=== PATIENT | male | born 1940 | race Asian ===

== ENCOUNTER 2020-05-07 03:50 | Inpatient (IN) | payer MEDICARE, OTHER ==
[2020-05-07] VITALS (13 sets, daily range): BP systolic 113–166; BP diastolic 61–91
[~2020-05-07] VITALS: Ht 167.6 cm; Wt 60.8 kg
[2020-05-07 05:55] LABS: Basophils # (auto) 0 10 ^3/uL (0-0.2); Basophils % (auto) 0.5 % (0.0-2.0); Eosinophils # (auto) 0 10 ^3/uL (0-0.8); Lymphocytes # (auto) 0.8 10 ^3/uL (0.4-5.4); Monocytes # (auto) 0.4 10 ^3/uL (0-1.3); Nucleated Red Blood Cells % 0.1 %
[2020-05-07 05:59] LABS: Eosinophils % (auto) 0.5 % (0.0-7.0); Hematocrit 20.2 % (41.0-53.0); Lymphocytes % (auto) 12.8 % (10.0-50.0); Mean Corpuscular Hemoglobin 35.7 pg (28.0-32.0); Mean Corpuscular Hgb Conc. 33.1 g/dL (32.0-36.0); Mean Corpuscular Volume 107.8 fL (80.0-100.0); Monocytes % (auto) 7.1 % (0.0-12.0); Neutrophils # (auto) 4.7 10 ^3/uL (1.6-8.6); Neutrophils % (auto) 79.1 % (37.0-80.0); Platelet Count (auto) 154 10^3/uL (140-450); Red Blood Cells 1.87 10^6/uL (4.5-5.90); Red Cell Distribution Width 17.4 % (11.8-14.3); White Blood Cell 5.9 10^3/uL (4.4-10.8)
[2020-05-07 06:16] LABS: Chloride 113 mmol/L (98-107); Hemoglobin 6.7 g/dL (13.5-17.5); Potassium 4.6 mmol/L (3.5-5.1); Sodium 140 mmol/L (136-145)
[2020-05-07 06:26] LABS: Alanine Aminotransferase 21 U/L (16-61); Albumin 3.1 g/dL (3.4-5.0); Alkaline Phosphatase 44 U/L (45-117); Anion Gap 5 (5-15); Aspartate Aminotransferase 23 U/L (15-37); Bilirubin, Total 0.5 mg/dL (0.2-1.0); Calcium 8.3 mg/dL (8.5-10.1); Carbon Dioxide 22 mmol/L (21-32); GFR African American 26 mL/min; GFR Non-African American 22 mL/min; Glucose 112 mg/dL (74-106); Total Protein 6.2 g/dL (6.4-8.2)
[2020-05-07 06:30] LABS: Blood Urea Nitrogen 80 mg/dL (7-18)
[2020-05-07 10:13] LABS: Partial Thromboplastin Time 48.5 sec (23.0-31.2)
[2020-05-07] MEDS: SODIUM CHLORIDE 0.9% 1,000 ML IV SCH ×3 (10:15→23:23)
[2020-05-07] MEDS ORDERED: NITROGLYCERIN 0.4 MG SL TAB SL PRN (10:15)
[2020-05-07] MEDS ORDERED: MORPHINE SULF INJ 2 MG/ML SYRINGE 1ML IV PRN (10:15)
[2020-05-07] MEDS ORDERED: LABETALOL HCL 5 MG/ML 4ML SYRINGE IV PRN (10:15)
[2020-05-07 10:40] LABS: INR > 8.0 (0.9-1.15)
[2020-05-07 10:44] LABS: % Iron Saturation 12.7 % (20-55)
--- NOTE | 2020-05-07 11:19 | NUR ---
MARIBEL KAUFMAN IS HERE TO SIGN THE BLOOD TRANSFUSION CONSENT, ADVICE TO TRANSFUSE THE BLOOD FIRST THEN TRANSFUSE TH EPLASMA
[2020-05-07] MEDS ORDERED: WARF3TAB22 PO ×2 (11:43→12:20)
--- NOTE | 2020-05-07 12:22 | NUR ---
BLOOD TRANSFUSION INITIATED PRE SET OF VS TAKEN EDUCATION REGARDING BLOOD TRANSFUSION REACTION GIVEN TO PT, VERBALIS UNDERSTANDING
--- NOTE | 2020-05-07 12:46 | NUR ---
BLOOD TRANSFUSION CONTINUE ON, VS ARE STABLE, NO REACTION NOTED, PT TOLERATED WELL
[2020-05-07 13:24] LABS: Creatinine, Urine 89 mg/dL (30.0-125.0); Sodium Urine 65 mmol/L (40-220)
--- NOTE | 2020-05-07 13:26 | NUR ---
Hold PT today due to low Hgb and pt receiving blood transfusion. Will attempt again tomorrow.
--- NOTE | 2020-05-07 14:55 | NUR ---
PT TOLERATED ALL THE FIRST RBC UNIT WELL, NO REACTION OR STRESS NOTED, CONTINUE MONITORING
--- NOTE | 2020-05-07 15:04 | NUR ---
assessment Patient is a 79 year old male. Per patients Elissa prior to admission patient lived home with her and needed assistance. Per Elissa patient has a fww, and a wheelchair for home use. Patients PCP is Dr Pieter Townsend in [place]. Elissa informed me patient has become more weak lately and needs SNF for rehab. I informed Elissa if patient qualifies for SNF it would be in the [place] area. Elissa verbalized understanding. I informed Elissa that patient will need a PT eval prior to requesting auth. I informed Elissa patients post discharge needs to be determined after MD work up. I informed Elissa I will continue to monitor and follow up as appropriate for any post discharge needs. Elissa verbalized understanding. Addendum: 05/07/20 at 1510 by Bel ROMERO Amended: Links added.
--- NOTE | 2020-05-07 15:25 | NUR ---
2 ND UNIT OF RBCS INTIATED, PRE SET OF VS TAKEN CONTINUE MONITORING
--- NOTE | 2020-05-07 15:46 | NUR ---
2 ND SET OF VS STABLE, NO DISTRESS NOTED
[2020-05-07 17:43] LABS: Folate (Folic Acid) 4.32 ng/mL (5.38-24)
--- NOTE | 2020-05-07 18:03 | NUR ---
PATIENT TOLERATED THE SECOND UNIT OF RBCS WELL, NO REACTION NOTED, CONTINUE MONITORING
--- NOTE | 2020-05-07 18:28 | NUR ---
PT CONTINUE STABLE, CONTINUE MONITORING
--- NOTE | 2020-05-07 19:05 | NUR ---
Opening Shift Note Assumed care of patient, awake and alert. No S/S of distress/SOB or pain. Instructed on POC and to call for assist PRN, will continue to monitor for changes Q1hr and PRN.
--- NOTE | 2020-05-07 21:13 | NUR ---
Vitals signs of patient is within normal limits. patient stable. no sob and distress seen before transfusion. will continue to monitor.
--- NOTE | 2020-05-07 21:13 | NUR ---
Went to Laboratory to berry picker FFP with Corrected name on consent. Please see hard chart. CN aware. will endorse with AM nurse to let MD sign blood consent with corrected name. Lab verified.
--- NOTE | 2020-05-07 21:41 | NUR ---
Start of FFP transfusion. Verified with Cesar CUENCA.
[2020-05-07] MEDS: PANTOPRAZOLE 40 MG/10 ML VIAL INJ IV SCH (22:20)
[2020-05-07] MEDS: METOPROLOL TARTRATE 25 MG TAB PO SCH (22:21)
--- NOTE | 2020-05-07 23:12 | NUR ---
ONGOING FFP TRANSFUSION. PATIENT NO COMPLAINS, STABLE VITAL SIGNS. NO SOB AND NO TRANSFUSION REACTION SEEN.
--- NOTE | 2020-05-07 23:21 | NUR ---
FFP TRANSFUSION ENDED. PATIENT TOLERATED WELL. NO ADVERSE REACTION SEE.
[2020-05-08 05:22] VITALS: BP 128/71
--- NOTE | 2020-05-08 07:10 | NUR ---
Closing shift event. Patient alert and oriented x4. No SOB, no acute distress seen. Safety Fall precaution observed.
[2020-05-08 07:12] LABS: Basophils # (auto) 0 10 ^3/uL (0-0.2); Basophils % (auto) 0.6 % (0.0-2.0); Eosinophils # (auto) 0.1 10 ^3/uL (0-0.8); Eosinophils % (auto) 1.2 % (0.0-7.0); Hematocrit 25.5 % (41.0-53.0); Hemoglobin 8.6 g/dL (13.5-17.5); Lymphocytes # (auto) 0.8 10 ^3/uL (0.4-5.4); Lymphocytes % (auto) 17.2 % (10.0-50.0); Mean Corpuscular Hemoglobin 32.8 pg (28.0-32.0); Mean Corpuscular Hgb Conc. 33.7 g/dL (32.0-36.0); Mean Corpuscular Volume 97.3 fL (80.0-100.0); Monocytes # (auto) 0.4 10 ^3/uL (0-1.3); Monocytes % (auto) 8.1 % (0.0-12.0); Neutrophils # (auto) 3.4 10 ^3/uL (1.6-8.6); Neutrophils % (auto) 72.9 % (37.0-80.0); Nucleated Red Blood Cells % 0.1 %; Platelet Count (auto) 121 10^3/uL (140-450); Red Blood Cells 2.62 10^6/uL (4.5-5.90); White Blood Cell 4.6 10^3/uL (4.4-10.8)
[2020-05-08 07:25] LABS: INR 2.82 (0.9-1.15)
[2020-05-08 07:30] LABS: Red Cell Distribution Width 21.8 % (11.8-14.3)
[2020-05-08 07:34] LABS: Calcium 7.7 mg/dL (8.5-10.1); Potassium 4.5 mmol/L (3.5-5.1)
[2020-05-08 07:36] LABS: BUN/Creatinine Ratio 25.3; Phosphorus 3.1 mg/dL (2.5-4.90)
[2020-05-08 08:00] VITALS: BP 148/93
[2020-05-08 09:00] VITALS: BP 148/93
[2020-05-08] MEDS: PANTOPRAZOLE 40 MG/10 ML VIAL INJ IV SCH ×2 (09:32→22:19)
[2020-05-08] MEDS: METOPROLOL TARTRATE 25 MG TAB PO SCH ×2 (09:33→22:00)
[2020-05-08 13:00] VITALS: BP 100/60
--- NOTE | 2020-05-08 14:49 | NUR ---
CALLED DR. Gerson VERDUGO PER DR. RAZA FOR DISCHARGE CLEARANCE. ONE MESSAGE WAS LEFT WITH ANSWERING SERVICES. AWAITING FOR RESPONSE.
[2020-05-08 17:00] VITALS: BP 142/90
[2020-05-08] MEDS ORDERED: SODIUM FERR GLUC 62.5MG/5ML 125 MG in SODIUM CHL 0.9% 100 ML IV ONE (18:30)
--- NOTE | 2020-05-08 18:55 | NUR ---
CALLED PHARMACY FOR FERR GLUC IVPB. NOC SHIFT RN MADE AWARE PHARMACY WITH SEND FERR GLUC VIA BULET.
--- NOTE | 2020-05-08 19:00 | NUR ---
Opening Shift Note Assumed care of patient, awake and alert. No S/S of distress/SOB or pain. Bed in low locked position, call light within reach, siderails up x2. Safety fall precaution education given. Patient agreed and verbalized understanding. Instructed on POC and to call for assist PRN, will continue to monitor for changes Q1hr and PRN.
[2020-05-08 22:00] VITALS: BP 94/64
--- NOTE | 2020-05-08 22:14 | NUR ---
send urine sample to lab.
[2020-05-08 22:26] LABS: Urine Bacteria MOD /hpf (None Seen); Urine Blood 2+ /uL (Negative); Urine Specific Gravity 1.014 (1.001-1.035); Urine WBC 56 /hpf (0 - 3)
[2020-05-09 05:00] VITALS: BP 135/78
--- NOTE | 2020-05-09 05:10 | NUR ---
IV removal IV DC'd with clean sterile technique, catheter fully intact. Pressure dressing applied to site. Patient tolerated well. NOTE:
--- NOTE | 2020-05-09 05:15 | NUR ---
IV insertion IV access obtained, via clean sterile technique by inserting 22 gauge catheter at Left Hand after 1 attempt. IV secured properly. No trauma to site. Patient tolerated well. NOTE:
--- NOTE | 2020-05-09 07:02 | NUR ---
Closing shift event. Patient alert and oriented. No SOB, no acute distress seen. Safety Fall precaution observed
[2020-05-09 07:11] LABS: Basophils # (auto) 0 10 ^3/uL (0-0.2); Basophils % (auto) 0.6 % (0.0-2.0); Eosinophils # (auto) 0.1 10 ^3/uL (0-0.8); Eosinophils % (auto) 1.7 % (0.0-7.0); Hematocrit 28.1 % (41.0-53.0); Hemoglobin 9.4 g/dL (13.5-17.5); Lymphocytes # (auto) 0.8 10 ^3/uL (0.4-5.4); Lymphocytes % (auto) 14.9 % (10.0-50.0); Mean Corpuscular Hemoglobin 32.7 pg (28.0-32.0); Mean Corpuscular Hgb Conc. 33.6 g/dL (32.0-36.0); Mean Corpuscular Volume 97.5 fL (80.0-100.0); Monocytes # (auto) 0.4 10 ^3/uL (0-1.3); Neutrophils % (auto) 74.8 % (37.0-80.0); Platelet Count (auto) 130 10^3/uL (140-450); Red Blood Cells 2.88 10^6/uL (4.5-5.90); White Blood Cell 5.3 10^3/uL (4.4-10.8)
[2020-05-09 07:23] LABS: Red Cell Distribution Width 21.1 % (11.8-14.3)
[2020-05-09 07:27] LABS: INR 2.01 (0.9-1.15)
[2020-05-09 07:59] LABS: Magnesium 2.6 mg/dL (1.6-2.6); Potassium 4.8 mmol/L (3.5-5.1)
[2020-05-09 08:01] LABS: BUN/Creatinine Ratio 22.1
[2020-05-09 09:00] VITALS: BP 134/76
--- NOTE | 2020-05-09 11:43 | NUR ---
Nutrition Assessment Est energy needs [id number] kcal (25-30 kcal/kg BW 64.4kg) Est protein needs 52-64g (0.8-1g/kg BW 64.4kg) Will monitor and reassess prn. Addendum: 05/09/20 at [address] Amended: Links added.
[2020-05-09 13:00] VITALS: BP 126/78
[2020-05-09] MEDS: METOPROLOL TARTRATE 25 MG TAB PO SCH ×2 (13:30→23:10)
[2020-05-09] MEDS: PANTOPRAZOLE 40 MG/10 ML VIAL INJ IV SCH ×2 (13:30→23:11)
[2020-05-09] MEDS: SODIUM FERR GLUC 62.5MG/5ML 125 MG in SODIUM CHL 0.9% 100 ML IV SCH (13:58)
[2020-05-09] MEDS ORDERED: SODIUM CHLORIDE 0.9% 1,000 ML IV ONE (14:45)
[2020-05-09 17:00] VITALS: BP 132/75
[2020-05-09] MEDS ORDERED: WARFARIN SODIUM 2 MG, WARFARIN SODIUM 1 MG PO ONE ×2 (17:00)
[2020-05-09] MEDS ORDERED: WARFARIN SODIUM 1 MG TAB PO ONE (17:00)
--- NOTE | 2020-05-09 19:10 | NUR ---
Opening Shift Note Assumed care of patient, awake and alert. No S/S of distress/SOB or pain. Bed in lowest locked position, side rails up x2, call light within reach. Instructed on POC and to call for assist PRN, will continue to monitor for changes Q1hr and PRN.
[2020-05-09 22:00] VITALS: BP 135/80
[2020-05-10 05:00] VITALS: BP 128/81
[2020-05-10 06:37] LABS: Basophils # (auto) 0 10 ^3/uL (0-0.2); Basophils % (auto) 0.5 % (0.0-2.0); Eosinophils # (auto) 0.1 10 ^3/uL (0-0.8); Eosinophils % (auto) 2.4 % (0.0-7.0); Hematocrit 27.2 % (41.0-53.0); Hemoglobin 9.2 g/dL (13.5-17.5); Lymphocytes # (auto) 0.8 10 ^3/uL (0.4-5.4); Lymphocytes % (auto) 17.1 % (10.0-50.0); Mean Corpuscular Hemoglobin 32.8 pg (28.0-32.0); Mean Corpuscular Hgb Conc. 33.7 g/dL (32.0-36.0); Mean Corpuscular Volume 97.2 fL (80.0-100.0); Monocytes # (auto) 0.4 10 ^3/uL (0-1.3); Monocytes % (auto) 7.4 % (0.0-12.0); Neutrophils # (auto) 3.5 10 ^3/uL (1.6-8.6); Neutrophils % (auto) 72.6 % (37.0-80.0); Nucleated Red Blood Cells % 0.1 %; Platelet Count (auto) 126 10^3/uL (140-450); White Blood Cell 4.8 10^3/uL (4.4-10.8)
[2020-05-10 06:40] LABS: INR 1.89 (0.9-1.15)
[2020-05-10 06:59] LABS: BUN/Creatinine Ratio 17.9; Calcium 8.2 mg/dL (8.5-10.1)
[2020-05-10 07:06] LABS: Red Cell Distribution Width 20.2 % (11.8-14.3)
--- NOTE | 2020-05-10 07:13 | NUR ---
Patient lying in bed, awake and alert. No s/s of distress. Will continue to monitor.
[2020-05-10 09:00] VITALS: BP_SYST 133; BP_SYST 136; BP_DIAS 76; BP_DIAS 78
--- NOTE | 2020-05-10 10:58 | NUR ---
PT REPORTS NO C/O PAIN AND OR DISCOMFORT. PT STATES HE HAS C/O DIZZINESS. PT WORKED ON BEDSIDE THER EX IN CHAIR PRIOR TO GAIT. PT WAS ABLE TO COMPLETE EXERCISES FOR BILAT UE AND LE'S X 10 REPS. PT WORKED ON T Y AND I EXERCISES FOR UE AND KNEE EXT, MARCHING, HEEL AND TOE RAISES FOR BILAT LE. PT AMBULATED X 130FT AROUND PERIMETER OF NURSES STATION AND ONCE HE WAS COMPLETED PT WAS XFRD BACK TO BED AND CONTINUED TO HAVE C/O DIZZINESS. PT WAS LEFT SUPINE IN BED WITH CALL LIGHT WITHIN REACH. Addendum: 05/10/20 at 1101 by Alisha Garcia PT Amended: Links added.
[2020-05-10] MEDS: METOPROLOL TARTRATE 25 MG TAB PO SCH ×2 (12:18→22:00)
[2020-05-10] MEDS: PANTOPRAZOLE 40 MG/10 ML VIAL INJ IV SCH ×2 (12:19→22:00)
[2020-05-10] MEDS: SODIUM FERR GLUC 62.5MG/5ML 125 MG in SODIUM CHL 0.9% 100 ML IV SCH (12:19)
[2020-05-10 13:00] VITALS: BP 136/78
[2020-05-10] MEDS ORDERED: WARFARIN SODIUM 5 MG TAB PO ONE (17:00)
[2020-05-10 17:17] VITALS: BP 128/81
--- NOTE | 2020-05-10 20:39 | NUR ---
Received phone call from Dr. Lillie Conway, possible EGD tomorrow, depending on schedule. MD will call in AM to see if able to schedule procedure then inform dayshift RN. New order received to keep patient NPO at midnight. Orders read back and verified, will implement as ordered and continue to monitor.
[2020-05-10 22:00] VITALS: BP 114/66
[2020-05-11 05:00] VITALS: BP 91/62
--- NOTE | 2020-05-11 05:09 | NUR ---
Blood pressure reassessed and found to be 98/72 mm Hg. Will continue care.
[2020-05-11 05:23] LABS: Basophils # (auto) 0 10 ^3/uL (0-0.2); Basophils % (auto) 0.6 % (0.0-2.0); Eosinophils # (auto) 0.1 10 ^3/uL (0-0.8); Eosinophils % (auto) 2.4 % (0.0-7.0); Hematocrit 28.4 % (41.0-53.0); Hemoglobin 9.2 g/dL (13.5-17.5); Lymphocytes # (auto) 0.9 10 ^3/uL (0.4-5.4); Lymphocytes % (auto) 19.1 % (10.0-50.0); Mean Corpuscular Hemoglobin 31.8 pg (28.0-32.0); Mean Corpuscular Hgb Conc. 32.5 g/dL (32.0-36.0); Mean Corpuscular Volume 97.7 fL (80.0-100.0); Monocytes # (auto) 0.4 10 ^3/uL (0-1.3); Monocytes % (auto) 8.5 % (0.0-12.0); Neutrophils # (auto) 3.2 10 ^3/uL (1.6-8.6); Neutrophils % (auto) 69.4 % (37.0-80.0); Nucleated Red Blood Cells % 0.1 %; Platelet Count (auto) 131 10^3/uL (140-450); Red Blood Cells 2.91 10^6/uL (4.5-5.90); White Blood Cell 4.6 10^3/uL (4.4-10.8)
--- NOTE | 2020-05-11 05:30 | NUR ---
Attempted to collect COVID swab per hospital protocol for potential pending EGD. Patient refusing at this time. Patient educated that swab is done per protocol for possible procedure and that he may not be able to go down for the EGD without a COVID swab done, patient continuing to refuse at this time. No s/s of distress. Will continue to monitor.
[2020-05-11 05:39] LABS: INR 2.39 (0.9-1.15)
--- NOTE | 2020-05-11 06:38 | NUR ---
Patient lying in bed, eyes closed, respirations even and unlabored, appears asleep. Patient awakens to name and touch. No s/s of distress. Will endorse care to dayshift RN.
[2020-05-11 08:44] VITALS: BP 116/70
[2020-05-11] MEDS: METOPROLOL TARTRATE 25 MG TAB PO SCH (10:12)
[2020-05-11] MEDS: PANTOPRAZOLE 40 MG/10 ML VIAL INJ IV SCH (10:12)
--- NOTE | 2020-05-11 11:22 | NUR ---
Nutrition Followup Note Wt 60.8kg Pt was alert and oriented at rounds. Pt reports appetite is good and denies GI issues. Pt was NPO possible EGD per RN note. Pt diet adv to [facility] soft while writing this note. Pt appetite is good aeb pt with 81% avg po intake x 2 days per RN note Est energy needs [phone] kcal (25-30 kcal/kg BW 64.4kg) Est protein needs 52-64g (0.8-1g/kg BW 64.4kg) Will monitor and reassess prn. Labs: BUN 32H, Creat 1.79H, Alb 3.1L, Ca 8.2L BM: Pt with no BMs since admission per pt Skin: BS 20 low risk, full details in RN note. PES: Resolved prior to NPO status, will monitor for intake after procedure: Inadequate oral intake r/t current medical condition aeb pt with a clear liquid diet Comments 1) Continue to monitor diet status, labs, skin, weight 2) refer pt to [facility] on DC 3) Continue current plan of care Expected Outcomes/Goals: 1) pt to consume >75% of po intake 2) pt to maintain wt while in hospital 3) f/u 3-5 days
[2020-05-11] MEDS ORDERED: WARF2TAB49 PO ×2 (12:27→13:49)
[2020-05-11] MEDS ORDERED: CEPH-37 PO ×2 (12:35→13:48)
[2020-05-11] MEDS ORDERED: CEPHALEXIN 250 MG CAP PO ONE (12:45)
[2020-05-11 12:50] VITALS: BP 125/67
[2020-05-11] MEDS: SODIUM FERR GLUC 62.5MG/5ML 125 MG in SODIUM CHL 0.9% 100 ML IV SCH (13:15)
--- NOTE | 2020-05-11 13:46 | NUR ---
1345 05/11/20 - Faxed to [facility] at [phone], face sheet, Order for home health for safety, PT, medication management, vital. Pending review, and acceptance.
--- NOTE | 2020-05-11 14:19 | NUR ---
1415 05/11/20 - contacted by [facility] on-call coordinator Katja, who stated someone from the office will f/u on Tuesday.
[2020-05-11 16:33] VITALS: BP 125/67
--- NOTE | 2020-05-11 18:10 | NUR ---
Discharge instructions given as ordered. Encourage to follow up with PMD as instructed. All questions and concerns addressed. Patient verbalized understanding. Medication reconciliation form completed and copy given to patient. IV removed with catheter intact, and pressure dressing applied. Telemetry unit returned to ICU. Patient taken to vehicle via wheelchair with all personal belongings, accompanied by staff member. No distress noted at time of departure.
[2020-05-12] MEDS ORDERED: FOLIC ACID 1 MG TAB PO SCH (10:00)
--- NOTE | 2020-05-12 15:04 | NUR ---
Spoke with HORACIO at [facility], Shahla [phone] she provided a list of contracted home health agencies. Per Shahla the [facility] is responsible for providing authorization for HH services but the claims are paid for by [facility]. Contacted [facility] agency [phone] spoke with Heide, she advised they can see the patient, faxed packet to [phone]. Addendum: 05/12/20 at 1546 by HOLLY GONZALEZ [employer] Director Shahla # [phone]
--- NOTE | 2020-05-12 15:46 | NUR ---
Called [facility] spoke with Heide, confirmed they are accepting pt onto service for , they need the auth faxed to# [phone], Called [employer] Shahla [phone] left detailed vm to fax auth to agency. Requested a call back once this is completed.
--- NOTE | 2020-05-13 09:19 | NUR ---
Called HORACIO Gale [phone] - bvjc detailed VM that [facility] will see patient, auth needs to be faxed to [phone], also requested a call back once this is done. Awaiting call back.
--- NOTE | 2020-05-13 11:56 | NUR ---
Called HORACIO Maier at [phone] she advises that auth# [id number] has been faxed to [facility].
--- NOTE | 2020-05-13 11:58 | NUR ---
Called [facility] advised auth was faxed to their office, provided auth# [id number], once hardcopy auth is rec'd per Heide they will call patient and schedule them.
== END 2020-05-11 18:10 | disposition home health service (06) | DRG 377 ==
LOC: ER 03:50 → EDBD 03:50 → TELE 03:51 → TELE-WESTW 11:05
PROVIDERS: ADMIT Nurse Practitioner Acute Care; ATTEND Internal Medicine
PROC: 30230N1 Transfusion of Nonautologous Red Blood Cells into Peripheral Vein, Open Approach (ICD-10-PCS; principal; 2020-05-07)
PROC: 30233K1 Transfusion of Nonautologous Frozen Plasma into Peripheral Vein, Percutaneous Approach (ICD-10-PCS; 2020-05-07)
DX: K92.2 Gastrointestinal hemorrhage, unspecified (principal); N17.0 Acute kidney failure with tubular necrosis; N18.4 Chronic kidney disease, stage 4 (severe); N39.0 Urinary tract infection, site not specified; E44.0 Moderate protein-calorie malnutrition; D50.0 Iron deficiency anemia secondary to blood loss (chronic); I25.10 Atherosclerotic heart disease of native coronary artery without angina pectoris; R62.7 Adult failure to thrive; B96.4 Proteus (mirabilis) (morganii) as the cause of diseases classified elsewhere; D75.89 Other specified diseases of blood and blood-forming organs; I12.9 Hypertensive chronic kidney disease with stage 1 through stage 4 chronic kidney disease, or unspecified chronic kidney disease; T45.515A Adverse effect of anticoagulants, initial encounter; Z95.810 Presence of automatic (implantable) cardiac defibrillator; Z79.01 Long term (current) use of anticoagulants; Z95.2 Presence of prosthetic heart valve; Z68.21 Body mass index [BMI] 21.0-21.9, adult; Z79.899 Other long term (current) drug therapy; Y92.89 Other specified places as the place of occurrence of the external cause; Z88.0 Allergy status to penicillin
CPT/HCPCS: 36415; 71045; 76775; 80048; 80053; 81001; 82570; 82607; 82746; 83540; 83550; 83735; 84100; 84300; 84443; 84484; 85025; 85610; 85730; 86850; 86900; 86901; 86920; 87086; 87088; 87186; 93005; 97110; 97116; 97530; C9113; G0378